=== PATIENT | male | born 1975 ===

== ENCOUNTER → 2017-12-31 | Outpatient (CLI) | payer OTHER ==
--- NOTE | 2018-01-01 09:47 | XCELERA REPORT ---
[address] [address] Lower Extremity Arterial Evaluation Name: MELISSA LEONARDO Age: 42 yrs Gender: Male : 1975 Patient Status: Outpatient Patient Location: Study Date: 12/31/2017 01:13 PM Procedure: A color flow and duplex scan of the lower extremity arteries was performed bilaterally with velocity and waveform anaylsis. Reason For Study: RADICULAOPATHY LUMBAR REGION Ordering Physician: ROBYN WAKEFIELD Performed By: Jesse Perez Measurements and Calculations Right Left PATIENT ACCOUNTS SPECIALIST PSV 133.6 106.8 cm/sec Prox PFA PSV -81.6 -69.8 cm/sec Prox SFA PSV 95.0 94.8 cm/sec Mid SFA PSV -91.5 -103.1 cm/sec Dist SFA PSV -83.5 -73.7 cm/sec Prox Pop A PSV 65.9 68.3 cm/sec Dist GEOVANI PSV 91.0 99.9 cm/sec Dist VAULT MECHANIC PSV 55.0 70.7 cm/sec Noé Pedis PSV -105.5 -85.9 cm/sec Right Side Arterial Evaluation Normal velocity and triphasic waveforms noted from the Common Femoral artery to the infrageniculate vessels. 0 % stenosis . Ankle Brachial index 1.21. Left Side Arterial Evaluation Normal velocity and triphasic waveforms noted from the Common Femoral artery to the infrageniculate vessels. 0 % stenosis . Ankle Brachial index 1.24. Interpretation Summary No hemodynamically significant lesions in the bilateral lower extremities, on duplex imaging, at rest. : ROBYN WAKEFIELD > Juan Cruz
== END ==
LOC: SP 12:07
PROVIDERS: ATTEND Physician Assistant
DX: M54.16 Radiculopathy, lumbar region (principal)
CPT/HCPCS: 93925